=== PATIENT | male | born 1955 | race African-American/Black ===

== ENCOUNTER 2019-05-09 17:07 | Emergency (ER) | payer MEDICAID ==
[~2019-05-09] VITALS: Ht 180.3 cm; Wt 87.0 kg
[~2019-05-09 17:07] MED LIST: HYDR-3280 MT
[2019-05-09] MEDS ORDERED: HYDROCODONE/ACETAMINOPHEN 10/325MG TABLET PO ONE (19:15)
[2019-05-09 20:03] VITALS: BP 137/84
== END 2019-05-09 20:07 | disposition home or self-care (01) ==
LOC: ER 17:07
DX: G89.29 Other chronic pain (principal); M25.552 Pain in left hip; M19.90 Unspecified osteoarthritis, unspecified site; J44.9 Chronic obstructive pulmonary disease, unspecified
CPT/HCPCS: 99283

== ENCOUNTER 2019-07-20 14:35 | Emergency (ER) | payer SELFPAY ==
[~2019-07-20] VITALS: Ht 182.9 cm; Wt 98.0 kg
[2019-07-20 14:51] VITALS: BP 122/84
== END 2019-07-20 18:19 | disposition left against medical advice (07) ==
LOC: ER 14:35
DX: Z53.21 Procedure and treatment not carried out due to patient leaving prior to being seen by health care provider (principal); J44.9 Chronic obstructive pulmonary disease, unspecified; J45.909 Unspecified asthma, uncomplicated

== ENCOUNTER 2019-07-22 08:47 | Emergency (ER) | payer SELFPAY ==
[~2019-07-22] VITALS: Ht 170.2 cm; Wt 79.0 kg
[2019-07-22] MEDS ORDERED: OXYCODONE HCL/ACETAMINOPHEN 5/325MG TABLET PO ONE (12:15)
[2019-07-22] MEDS ORDERED: IBUPROFEN 400MG TABLET PO ONE (12:15)
[2019-07-22 13:45] VITALS: BP 134/89
== END 2019-07-22 13:55 | disposition home or self-care (01) ==
LOC: ER 08:47
DX: M25.552 Pain in left hip (principal); M25.551 Pain in right hip; J44.9 Chronic obstructive pulmonary disease, unspecified; Z96.649 Presence of unspecified artificial hip joint
CPT/HCPCS: 99283

== ENCOUNTER 2019-12-22 07:18 | Emergency (ER) | payer MEDICAID ==
[~2019-12-22] VITALS: Ht 180.3 cm; Wt 100.0 kg
[2019-12-22 07:27] VITALS: BP 131/79
[2019-12-22] MEDS ORDERED: HYDROCODONE/ACETAMINOPHEN 5/325MG TABLET PO ONE (08:00)
[2019-12-22] MEDS ORDERED: HYDROCODONE/ACETAMINOPHEN 5/325MG TABLET ONE (08:33)
== END 2019-12-22 08:50 | disposition home or self-care (01) ==
LOC: ER 07:18
DX: M54.9 Dorsalgia, unspecified (principal); G89.29 Other chronic pain; M54.30 Sciatica, unspecified side; J44.9 Chronic obstructive pulmonary disease, unspecified; J45.909 Unspecified asthma, uncomplicated
CPT/HCPCS: 99283

== ENCOUNTER 2020-05-03 07:17 | Emergency (ER) | payer MEDICAID ==
[~2020-05-03] VITALS: Ht 172.7 cm; Wt 82.0 kg
[2020-05-03 07:18] VITALS: BP 126/67
[2020-05-03] MEDS ORDERED: ALBU18HF2 IH (07:22)
== END 2020-05-03 08:08 | disposition left against medical advice (07) ==
LOC: ER 07:40
DX: R06.02 Shortness of breath (principal); Z53.21 Procedure and treatment not carried out due to patient leaving prior to being seen by health care provider
CPT/HCPCS: 93005

== ENCOUNTER 2020-07-15 03:30 | Inpatient (IN) | payer MEDICAID ==
[~2020-07-15] VITALS: Ht 180.3 cm; Wt 99.3 kg
[~2020-07-15 03:30] MED LIST changes: +ALBU18HF2 IH; -HYDR-3280 MT; +HYDR-4350 MT
[2020-07-15] MEDS ORDERED: ALBUTEROL (0.083%) 2.5MG/3ML NEB HHN STA ×2 (03:49→07:29)
[2020-07-15] MEDS ORDERED: METHYLPREDNISOLONE SOD SUCC 125 MG/2 ML VIAL IV STA (03:49)
[2020-07-15] MEDS ORDERED: IPRATROPIUM BROMIDE (0.02%) 0.5MG/2.5ML NEB HHN STA (03:49)
[2020-07-15 04:38] LABS: BASOPHILS % 0.3 % (0.0-2.0); EOSINOPHILS % 3.2 % (0.0-5.0); HEMATOCRIT. 43.2 % (42.0-52.0); HEMOGLOBIN. 14.4 g/dL (14.0-18.0); LYMPHOCYTES % 40.3 % (20.0-50.0); MEAN CORPUSCULAR HEMOGLOBIN 29.4 pg (28.0-32.0); MEAN CORPUSCULAR VOLUME 88.3 fL (80.0-94.0); MEAN PLATELET VOLUME 7.8 fl (7.4-10.4); MONOCYTES % 10.9 % (2.0-8.0); NEUTROPHILS % 45.3 % (40.0-76.0); PLATELET 204 x1000/uL (130-400); RED BLOOD CELL COUNT 4.89 mill/uL (4.7-6.1); RED CELL DISTRIBUTION WIDTH 13.8 % (11.6-14.6)
[2020-07-15 04:43] LABS: CHLORIDE 113 mEq/L (98-107)
[2020-07-15] MEDS ORDERED: ONDANSETRON HCL 4MG/2ML INJ IV PRN (11:00)
[2020-07-15] MEDS ORDERED: ACETAMINOPHEN 325MG TABLET PO PRN (11:00)
[2020-07-15] MEDS: METHYLPREDNISOLONE SOD SUCC 40 MG/ML VIAL IV SCH ×2 (11:13→19:07)
[2020-07-15] MEDS: ENOXAPARIN 40MG/0.4ML SYR SUBCUT SCH (12:35)
[2020-07-15] MEDS: IPRATROPIUM/ALBUTEROL 0.5-3(2.5)MG/3ML NEB HHN SCH ×3 (13:09→20:39)
[2020-07-15] MEDS: FAMOTIDINE 20MG TABLET PO SCH (21:48)
[2020-07-16] MEDS: METHYLPREDNISOLONE SOD SUCC 40 MG/ML VIAL IV SCH ×3 (04:09→19:58)
[2020-07-16] MEDS: IPRATROPIUM/ALBUTEROL 0.5-3(2.5)MG/3ML NEB HHN SCH ×3 (08:32→21:14)
[2020-07-16 10:45] VITALS: BP 124/78
[2020-07-16] MEDS: FAMOTIDINE 20MG TABLET PO SCH ×2 (12:03→21:49)
[2020-07-16] MEDS: ENOXAPARIN 40MG/0.4ML SYR SUBCUT SCH (12:03)
[2020-07-16] MEDS ORDERED: HYDROCODONE/ACETAMINOPHEN 5/325MG TABLET PO NR (14:00)
[2020-07-16 18:00] VITALS: BP 127/77
[2020-07-16 20:00] VITALS: BP 125/72
[2020-07-17] VITALS: BP 146/80
[2020-07-17] MEDS: HYDROCODONE/ACETAMINOPHEN 5/325MG TABLET PO PRN (00:38)
[2020-07-17] MEDS: IPRATROPIUM/ALBUTEROL 0.5-3(2.5)MG/3ML NEB HHN SCH ×5 (03:08→21:12)
[2020-07-17] MEDS: METHYLPREDNISOLONE SOD SUCC 40 MG/ML VIAL IV SCH ×3 (04:35→18:02)
[2020-07-17 04:40] VITALS: BP 124/82
[2020-07-17 08:00] VITALS: BP 129/70
[2020-07-17] MEDS: FAMOTIDINE 20MG TABLET PO SCH ×2 (08:33→20:36)
[2020-07-17] MEDS: ENOXAPARIN 40MG/0.4ML SYR SUBCUT SCH (11:16)
[2020-07-17 12:00] VITALS: BP 130/79
[2020-07-17] MEDS: TAMSULOSIN HCL 0.4MG SR CAPSULE PO SCH (14:04)
[2020-07-17 16:00] VITALS: BP 138/76
[2020-07-17 20:00] VITALS: BP 125/75
[2020-07-18] VITALS: BP 135/75
[2020-07-18] MEDS: IPRATROPIUM/ALBUTEROL 0.5-3(2.5)MG/3ML NEB HHN SCH ×6 (00:41→22:19)
[2020-07-18] MEDS: METHYLPREDNISOLONE SOD SUCC 40 MG/ML VIAL IV SCH ×3 (03:49→19:01)
[2020-07-18 04:00] VITALS: BP 124/80
[2020-07-18] MEDS: HYDROCODONE/ACETAMINOPHEN 5/325MG TABLET PO PRN ×2 (05:35→21:17)
[2020-07-18 08:00] VITALS: BP 147/98
[2020-07-18] MEDS: FAMOTIDINE 20MG TABLET PO SCH ×2 (09:11→21:14)
[2020-07-18] MEDS: TAMSULOSIN HCL 0.4MG SR CAPSULE PO SCH (09:12)
[2020-07-18] MEDS ORDERED: BENZONATATE 100MG CAPSULE PO PRN (11:15)
[2020-07-18] MEDS: ENOXAPARIN 40MG/0.4ML SYR SUBCUT SCH (11:41)
[2020-07-18 12:00] VITALS: BP 115/71
[2020-07-18 16:00] VITALS: BP 121/69
[2020-07-18] MEDS ORDERED: ALBU18HF2 IH (17:54)
[2020-07-18] MEDS ORDERED: FLUT1DIS3 INH (17:54)
[2020-07-18] MEDS ORDERED: P20 MT (17:54)
[2020-07-18] MEDS ORDERED: IPRA3AMP9 NEB (17:54)
[2020-07-18 20:00] VITALS: BP 136/78
[2020-07-19] VITALS: BP 101/75
[2020-07-19] MEDS: METHYLPREDNISOLONE SOD SUCC 40 MG/ML VIAL IV SCH (03:34)
[2020-07-19 04:00] VITALS: BP 133/82
[2020-07-19] MEDS: IPRATROPIUM/ALBUTEROL 0.5-3(2.5)MG/3ML NEB HHN SCH (04:06)
[2020-07-19 08:00] VITALS: BP 110/78
[2020-07-19 08:02] VITALS: BP 133/82
== END 2020-07-19 09:15 | disposition home or self-care (01) | DRG 140 ==
LOC: ER 03:54 → 8WST 07-16 08:43 → ENRESERV 07-16 09:45
PROVIDERS: ADMIT Internal Medicine Nephrology; ATTEND Internal Medicine Nephrology
DX: J44.1 Chronic obstructive pulmonary disease with (acute) exacerbation (principal); J96.00 Acute respiratory failure, unspecified whether with hypoxia or hypercapnia; F17.210 Nicotine dependence, cigarettes, uncomplicated; F14.10 Cocaine abuse, uncomplicated; R65.11 Systemic inflammatory response syndrome (SIRS) of non-infectious origin with acute organ dysfunction; E87.8 Other disorders of electrolyte and fluid balance, not elsewhere classified; Z79.891 Long term (current) use of opiate analgesic; Z79.899 Other long term (current) drug therapy; Z71.6 Tobacco abuse counseling
CPT/HCPCS: 36415; 71045; 80053; 83880; 84484; 85025; 93005; 94640; 96374; 99285; J1650; J2920; J2930

== ENCOUNTER 2020-08-16 02:54 | Inpatient (IN) | payer MEDICAID ==
[~2020-08-16] VITALS: Ht 195.6 cm; Wt 78.0 kg
[~2020-08-16 02:54] MED LIST changes: +FLUT1DIS3 INH; +IPRA3AMP9 NEB; +P20 MT
[2020-08-16] MEDS ORDERED: MAGNESIUM 2 G PREMIX 50 ML IV STA (03:11)
[2020-08-16] MEDS ORDERED: IPRATROPIUM BROMIDE (0.02%) 0.5MG/2.5ML NEB HHN STA (03:11)
[2020-08-16] MEDS ORDERED: METHYLPREDNISOLONE SOD SUCC 125 MG/2 ML VIAL IV STA (03:11)
[2020-08-16] MEDS ORDERED: ALBUTEROL (0.083%) 2.5MG/3ML NEB HHN STA (03:11)
[2020-08-16 04:59] LABS: HEMATOCRIT 42.7 % (42.0-52.0); HEMOGLOBIN 14.5 g/dL (14.0-18.0); MEAN CORPUSCULAR HEMOGLOBIN 29.9 pg (28.0-32.0); MEAN CORPUSCULAR VOLUME 88.3 fL (80.0-94.0); PLATELET 256 x1000/uL (130-400); RED BLOOD CELL COUNT 4.83 mill/uL (4.7-6.1); RED CELL DISTRIBUTION WIDTH 14.6 % (11.6-14.6)
[2020-08-16 05:05] LABS: CHLORIDE 111 mEq/L (98-107)
[2020-08-16] MEDS ORDERED: ACETAMINOPHEN 325MG TABLET PO PRN ×3 (09:30→18:45)
[2020-08-16] MEDS ORDERED: IPRATROPIUM/ALBUTEROL 0.5-3(2.5)MG/3ML NEB HHN PRN (12:00)
[2020-08-16] MEDS: SIMETHICONE 80MG TABLET CHEW PO PRN (13:42)
[2020-08-16] MEDS: METHYLPREDNISOLONE SOD SUCC 125 MG/2 ML VIAL IV SCH ×2 (13:43→18:00)
[2020-08-16] MEDS: IPRATROPIUM/ALBUTEROL 0.5-3(2.5)MG/3ML NEB HHN SCH ×2 (14:48→20:05)
[2020-08-16 16:00] VITALS: BP 125/72
[2020-08-16] MEDS ORDERED: DIPHENHYDRAMINE 50MG/ML VIAL IV PRN (18:45)
[2020-08-16] MEDS ORDERED: ONDANSETRON HCL 4MG/2ML INJ IV PRN (18:45)
[2020-08-16] MEDS ORDERED: KETOROLAC 30MG/ML VIAL IV PRN (18:45)
[2020-08-16] MEDS ORDERED: CLONIDINE 0.1MG TABLET PO PRN (18:45)
[2020-08-16 20:00] VITALS: BP 145/77
[2020-08-16] MEDS ORDERED: PNEUMOCOCCAL 23-VAL P-SAC VAC 0.5 ML IM ONE (20:00)
[2020-08-16] MEDS ORDERED: FAMOTIDINE 20MG TABLET PO SCH (21:00)
[2020-08-16] MEDS: FAMOTIDINE 20MG TABLET PO SCH (22:19)
[2020-08-16] MEDS: GUAIFENESIN 600MG ER TABLET PO SCH (22:19)
[2020-08-16] MEDS: ENOXAPARIN 40MG/0.4ML SYR SUBCUT SCH (22:20)
[2020-08-16] MEDS: HYDROCODONE/APAP 7.5/325MG 1 TAB TABLET PO PRN (22:38)
[2020-08-16] MEDS: SODIUM CHLORIDE 0.9% INJ 3ML FLUSH IVF SCH (22:54)
[2020-08-17] VITALS: BP 121/66
[2020-08-17] MEDS: METHYLPREDNISOLONE SOD SUCC 125 MG/2 ML VIAL IV SCH ×5 (01:48→23:06)
[2020-08-17] MEDS: ZOLPIDEM TARTRATE 5MG TABLET PO PRN (01:52)
[2020-08-17] MEDS: IPRATROPIUM/ALBUTEROL 0.5-3(2.5)MG/3ML NEB HHN SCH ×4 (02:00→21:37)
[2020-08-17 04:00] VITALS: BP 116/77
[2020-08-17] MEDS: SODIUM CHLORIDE 0.9% INJ 3ML FLUSH IVF SCH ×3 (06:00→20:43)
[2020-08-17 08:00] VITALS: BP 122/75
[2020-08-17] MEDS: IPRATROPIUM/ALBUTEROL 0.5-3(2.5)MG/3ML NEB HHN PRN (10:13)
[2020-08-17] MEDS: GUAIFENESIN 600MG ER TABLET PO SCH ×2 (10:54→20:42)
[2020-08-17] MEDS: FAMOTIDINE 20MG TABLET PO SCH ×2 (10:54→20:42)
[2020-08-17 12:00] VITALS: BP 118/71
[2020-08-17 16:00] VITALS: BP 125/71
[2020-08-17] MEDS ORDERED: TERBUTALINE SULFATE 1MG/ML VIAL SUBCUT NR (16:00)
[2020-08-17 20:00] VITALS: BP 124/69
[2020-08-17] MEDS: ENOXAPARIN 40MG/0.4ML SYR SUBCUT SCH (20:42)
[2020-08-17] MEDS: HYDROCODONE/APAP 7.5/325MG 1 TAB TABLET PO PRN (23:07)
[2020-08-18] VITALS: BP 131/79
[2020-08-18] MEDS: IPRATROPIUM/ALBUTEROL 0.5-3(2.5)MG/3ML NEB HHN SCH ×4 (01:37→21:24)
[2020-08-18 04:00] VITALS: BP 143/74
[2020-08-18] MEDS: SODIUM CHLORIDE 0.9% INJ 3ML FLUSH IVF SCH ×3 (05:08→21:35)
[2020-08-18] MEDS: METHYLPREDNISOLONE SOD SUCC 125 MG/2 ML VIAL IV SCH ×3 (05:08→17:19)
[2020-08-18] MEDS: SIMETHICONE 80MG TABLET CHEW PO PRN (05:13)
[2020-08-18 08:00] VITALS: BP 134/76
[2020-08-18] MEDS: FAMOTIDINE 20MG TABLET PO SCH (08:37)
[2020-08-18] MEDS: GUAIFENESIN 600MG ER TABLET PO SCH ×2 (08:37→21:29)
[2020-08-18 12:00] VITALS: BP 126/98
[2020-08-18] MEDS: MAGNESIUM/ALUMINUM HYDROXIDE/SIMETHICONE 30ML UDC PO PRN (13:00)
[2020-08-18 16:00] VITALS: BP 127/85
[2020-08-18] MEDS ORDERED: POLYVINYL ALCOHOL OPHTH DROPS 15ML BOTHEYE PRN (19:15)
[2020-08-18 20:00] VITALS: BP 117/65
[2020-08-18] MEDS: PANTOPRAZOLE 40MG DR TABLET PO SCH (21:29)
[2020-08-18] MEDS: ZOLPIDEM TARTRATE 5MG TABLET PO PRN (21:29)
[2020-08-18] MEDS: ENOXAPARIN 40MG/0.4ML SYR SUBCUT SCH (21:29)
[2020-08-19] VITALS: BP 129/82
[2020-08-19] MEDS: METHYLPREDNISOLONE SOD SUCC 125 MG/2 ML VIAL IV SCH ×3 (01:00→11:58)
[2020-08-19] MEDS: IPRATROPIUM/ALBUTEROL 0.5-3(2.5)MG/3ML NEB HHN SCH ×5 (02:20→23:34)
[2020-08-19 04:00] VITALS: BP 132/85
[2020-08-19] MEDS: SODIUM CHLORIDE 0.9% INJ 3ML FLUSH IVF SCH ×3 (05:47→20:42)
[2020-08-19 08:27] VITALS: BP 130/83
[2020-08-19] MEDS: GUAIFENESIN 600MG ER TABLET PO SCH ×2 (08:40→20:41)
[2020-08-19] MEDS: PANTOPRAZOLE 40MG DR TABLET PO SCH ×2 (08:40→20:41)
[2020-08-19 11:52] VITALS: BP 127/83
[2020-08-19] MEDS: HYDROCODONE/APAP 7.5/325MG 1 TAB TABLET PO PRN (11:59)
[2020-08-19] MEDS: SIMETHICONE 80MG TABLET CHEW PO PRN (11:59)
[2020-08-19 15:53] VITALS: BP 148/84
[2020-08-19 20:00] VITALS: BP 122/62
[2020-08-19] MEDS: ENOXAPARIN 40MG/0.4ML SYR SUBCUT SCH (20:40)
[2020-08-19] MEDS: METHYLPREDNISOLONE SOD SUCC 40 MG/ML VIAL IV SCH (20:42)
[2020-08-19] MEDS: ZOLPIDEM TARTRATE 5MG TABLET PO PRN (22:23)
[2020-08-20] VITALS: BP 143/86
[2020-08-20 04:00] VITALS: BP 126/78
[2020-08-20] MEDS: IPRATROPIUM/ALBUTEROL 0.5-3(2.5)MG/3ML NEB HHN PRN (04:45)
[2020-08-20] MEDS: METHYLPREDNISOLONE SOD SUCC 40 MG/ML VIAL IV SCH ×3 (05:18→21:32)
[2020-08-20] MEDS: SODIUM CHLORIDE 0.9% INJ 3ML FLUSH IVF SCH ×3 (05:19→21:33)
[2020-08-20] MEDS: PANTOPRAZOLE 40MG DR TABLET PO SCH ×2 (05:20→21:32)
[2020-08-20 06:09] LABS: CHLORIDE 107 mEq/L (98-107)
[2020-08-20 08:00] VITALS: BP 149/86
[2020-08-20] MEDS: GUAIFENESIN 600MG ER TABLET PO SCH ×2 (08:18→21:32)
[2020-08-20] MEDS: HYDROCODONE/APAP 7.5/325MG 1 TAB TABLET PO PRN (08:19)
[2020-08-20] MEDS: SIMETHICONE 80MG TABLET CHEW PO PRN (09:48)
[2020-08-20] MEDS: IPRATROPIUM/ALBUTEROL 0.5-3(2.5)MG/3ML NEB HHN SCH ×3 (09:52→20:00)
[2020-08-20 12:00] VITALS: BP 136/92
[2020-08-20] MEDS: TAMSULOSIN HCL 0.4MG SR CAPSULE PO SCH (15:56)
[2020-08-20 16:00] VITALS: BP 138/88
[2020-08-20] MEDS: THEOPHYLLINE ANHYDROUS 80 MG/15 ML 120ML PO SCH (18:00)
[2020-08-20 20:00] VITALS: BP 123/73
[2020-08-20] MEDS: ENOXAPARIN 40MG/0.4ML SYR SUBCUT SCH (21:33)
[2020-08-21] VITALS: BP 118/76
[2020-08-21] MEDS: SIMETHICONE 80MG TABLET CHEW PO PRN ×2 (00:21→20:03)
[2020-08-21] MEDS: THEOPHYLLINE ANHYDROUS 80 MG/15 ML 120ML PO SCH ×4 (00:21→17:36)
[2020-08-21] MEDS: IPRATROPIUM/ALBUTEROL 0.5-3(2.5)MG/3ML NEB HHN SCH ×4 (01:12→22:33)
[2020-08-21 04:00] VITALS: BP 121/79
[2020-08-21] MEDS: HYDROCODONE/APAP 7.5/325MG 1 TAB TABLET PO PRN (04:59)
[2020-08-21] MEDS: METHYLPREDNISOLONE SOD SUCC 40 MG/ML VIAL IV SCH ×2 (05:00→13:23)
[2020-08-21] MEDS: SODIUM CHLORIDE 0.9% INJ 3ML FLUSH IVF SCH ×3 (05:01→22:00)
[2020-08-21] MEDS: MAGNESIUM/ALUMINUM HYDROXIDE/SIMETHICONE 30ML UDC PO PRN (05:09)
[2020-08-21] MEDS: PANTOPRAZOLE 40MG DR TABLET PO SCH ×2 (06:41→20:13)
[2020-08-21 08:00] VITALS: BP 139/85
[2020-08-21] MEDS: TAMSULOSIN HCL 0.4MG SR CAPSULE PO SCH (09:28)
[2020-08-21] MEDS: GUAIFENESIN 600MG ER TABLET PO SCH ×2 (09:28→20:12)
[2020-08-21 12:00] VITALS: BP 117/89
[2020-08-21] MEDS ORDERED: TERBUTALINE SULFATE 1MG/ML VIAL SUBCUT NR (14:30)
[2020-08-21 16:55] VITALS: BP 113/73
[2020-08-21 20:00] VITALS: BP 134/82
[2020-08-21] MEDS: PREDNISONE 20MG TABLET PO SCH (20:02)
[2020-08-21] MEDS: ENOXAPARIN 40MG/0.4ML SYR SUBCUT SCH (20:13)
[2020-08-21] MEDS: BUDESONIDE 0.5MG/2ML NEB HHN SCH (22:33)
[2020-08-22] VITALS: BP 132/87
[2020-08-22] MEDS: THEOPHYLLINE ANHYDROUS 80 MG/15 ML 120ML PO SCH ×3 (00:17→12:49)
[2020-08-22] MEDS: MAGNESIUM/ALUMINUM HYDROXIDE/SIMETHICONE 30ML UDC PO PRN ×2 (00:18→08:23)
[2020-08-22] MEDS: IPRATROPIUM/ALBUTEROL 0.5-3(2.5)MG/3ML NEB HHN SCH ×3 (02:15→15:41)
[2020-08-22] MEDS: PANTOPRAZOLE 40MG DR TABLET PO SCH (05:39)
[2020-08-22] MEDS: SODIUM CHLORIDE 0.9% INJ 3ML FLUSH IVF SCH ×2 (06:00→14:00)
[2020-08-22 06:35] LABS: HEMATOCRIT. 42.7 % (42.0-52.0); HEMOGLOBIN. 14.1 g/dL (14.0-18.0); MEAN CORPUSCULAR HEMOGLOBIN 29.4 pg (28.0-32.0); MEAN CORPUSCULAR VOLUME 88.8 fL (80.0-94.0); MEAN PLATELET VOLUME 7.4 fl (7.4-10.4); PLATELET 238 x1000/uL (130-400); RED CELL DISTRIBUTION WIDTH 14.9 % (11.6-14.6)
[2020-08-22 07:26] LABS: CHLORIDE 103 mEq/L (98-107)
[2020-08-22 08:02] LABS: NUCLEATED RED BLOOD CELLS 1 /100 WBC; PLATELET ESTIMATE NORMAL
[2020-08-22] MEDS: PREDNISONE 20MG TABLET PO SCH (08:28)
[2020-08-22] MEDS: GUAIFENESIN 600MG ER TABLET PO SCH (08:28)
[2020-08-22] MEDS: TAMSULOSIN HCL 0.4MG SR CAPSULE PO SCH (08:29)
[2020-08-22] MEDS: BUDESONIDE 0.5MG/2ML NEB HHN SCH (08:56)
[2020-08-22 15:17] VITALS: BP 122/87
== END 2020-08-22 17:05 | disposition home or self-care (01) | DRG 140 ==
LOC: ER 02:54 → 8WST 05:16 → ENRESERV 07:29
PROVIDERS: ADMIT Internal Medicine; ATTEND Internal Medicine
DX: J44.1 Chronic obstructive pulmonary disease with (acute) exacerbation (principal); J96.21 Acute and chronic respiratory failure with hypoxia; F14.10 Cocaine abuse, uncomplicated; K21.9 Gastro-esophageal reflux disease without esophagitis; M19.90 Unspecified osteoarthritis, unspecified site; F17.210 Nicotine dependence, cigarettes, uncomplicated; N40.0 Benign prostatic hyperplasia without lower urinary tract symptoms; T40.5X5A Adverse effect of cocaine, initial encounter; Y92.89 Other specified places as the place of occurrence of the external cause; Z71.6 Tobacco abuse counseling; E87.8 Other disorders of electrolyte and fluid balance, not elsewhere classified; E44.1 Mild protein-calorie malnutrition; Z68.20 Body mass index [BMI] 20.0-20.9, adult; R65.11 Systemic inflammatory response syndrome (SIRS) of non-infectious origin with acute organ dysfunction
CPT/HCPCS: 36415; 71045; 80048; 80053; 83880; 85025; 85027; 90732; 93005; 94640; 99291; C1893; J1650; J2920; J2930; J3105; J3475; J7512; J7626

== ENCOUNTER 2021-02-05 02:23 | Inpatient (IN) | payer MEDICAID ==
[~2021-02-05] VITALS: Ht 180.3 cm; Wt 93.6 kg
[2021-02-05] MEDS ORDERED: ALBUTEROL (0.083%) 2.5MG/3ML NEB HHN STA (02:33)
[2021-02-05] MEDS ORDERED: METHYLPREDNISOLONE SOD SUCC 125 MG/2 ML VIAL IV STA (02:33)
[2021-02-05 02:48] LABS: BASOPHILS % 0.7 % (0.0-2.0); EOSINOPHILS % 2.6 % (0.0-5.0); HEMATOCRIT. 41.9 % (42.0-52.0); HEMOGLOBIN. 14.3 g/dL (14.0-18.0); MEAN CORPUSCULAR HEMOGLOBIN 29.7 pg (28.0-32.0); MEAN CORPUSCULAR VOLUME 87.4 fL (80.0-94.0); MEAN PLATELET VOLUME 7.4 fl (7.4-10.4); MONOCYTES % 10.5 % (2.0-8.0); NEUTROPHILS % 52.2 % (40.0-76.0); PLATELET 223 x1000/uL (130-400); RED CELL DISTRIBUTION WIDTH 13.7 % (11.6-14.6)
[2021-02-05 02:56] LABS: CHLORIDE 109 mEq/L (98-107)
[2021-02-05 09:35] VITALS: BP 106/82
[2021-02-05] MEDS ORDERED: DOCUSATE SODIUM 100MG CAPSULE PO PRN (09:45)
[2021-02-05] MEDS ORDERED: MAGNESIUM/ALUMINUM HYDROXIDE/SIMETHICONE 30ML UDC PO PRN (09:45)
[2021-02-05] MEDS ORDERED: NITROGLYCERIN 0.4MG TABLET SL SL PRN (09:45)
[2021-02-05] MEDS ORDERED: IPRATROPIUM/ALBUTEROL 0.5-3(2.5)MG/3ML NEB NEB PRN (09:45)
[2021-02-05] MEDS ORDERED: ACETAMINOPHEN 325MG TABLET PO PRN ×2 (09:45)
[2021-02-05] MEDS ORDERED: GUAIFENESIN 200MG/10ML SUGAR FREE UDC PO PRN (09:45)
[2021-02-05] MEDS ORDERED: ONDANSETRON HCL 4MG/2ML INJ IV PRN (09:45)
[2021-02-05] MEDS ORDERED: CLONIDINE 0.1MG TABLET PO PRN (09:45)
[2021-02-05] MEDS ORDERED: KETOROLAC 15MG/ML VIAL IV PRN (09:45)
[2021-02-05 12:00] VITALS: BP 126/90
[2021-02-05] MEDS: ENOXAPARIN 40MG/0.4ML SYR SUBCUT SCH (12:25)
[2021-02-05] MEDS: FAMOTIDINE 20MG TABLET PO SCH ×2 (12:25→20:07)
[2021-02-05] MEDS: LEVOFLOXACIN 500MG PREMIX 100 ML IV SCH (12:26)
[2021-02-05] MEDS: GUAIFENESIN/DM 600MG/30MG ER TAB 12HR PO SCH ×2 (12:26→20:07)
[2021-02-05] MEDS: ASPIRIN 325MG EC TABLET PO SCH (12:26)
[2021-02-05] MEDS: METHYLPREDNISOLONE SOD SUCC 125 MG/2 ML VIAL IV SCH ×2 (13:09→21:37)
[2021-02-05] MEDS: IPRATROPIUM/ALBUTEROL 0.5-3(2.5)MG/3ML NEB HHN SCH ×2 (14:46→19:46)
[2021-02-05 16:00] VITALS: BP 152/83
[2021-02-05 18:50] LABS: CREATINE KINASE 83 IU/L (39-308)
[2021-02-05 18:51] LABS: CREATINE KINASE MB FRACTION < 1.0 ng/mL (0.5-3.6)
[2021-02-05 20:00] VITALS: BP 122/79
[2021-02-05 20:04] LABS: FOLIC ACID (FOLATE) SERUM >20 ng/mL ng/mL (>5.38)
[2021-02-05 20:16] LABS: VITAMIN B12 SERUM 393 pg/mL (211-911)
[2021-02-06] VITALS: BP 126/77
[2021-02-06] MEDS: IPRATROPIUM/ALBUTEROL 0.5-3(2.5)MG/3ML NEB HHN SCH ×5 (00:02→20:35)
[2021-02-06 00:26] LABS: CREATINE KINASE 73 IU/L (39-308)
[2021-02-06 00:27] LABS: CREATINE KINASE MB FRACTION 1.6 ng/mL (0.5-3.6)
[2021-02-06 04:00] VITALS: BP 119/77
[2021-02-06 05:39] LABS: *BARBITURATES SCREEN URINE NEGATIVE (NEGATIVE); *BENZODIAZEPINES SCREEN URINE NEGATIVE (NEGATIVE); *COCAINE SCREEN URINE PRESUMTIVE POSITIVE (NEGATIVE); METHADONE URINE SCREEN NEGATIVE (NEGATIVE); OPIATES URINE SCREEN PRESUMTIVE POSITIVE (NEGATIVE)
[2021-02-06 05:40] LABS: *AMPHETAMINES SCREEN URINE NEGATIVE (NEGATIVE); CANNABINOID URINE SCREEN NEGATIVE (NEGATIVE); PHENCYCLIDINE URINE SCREEN NEGATIVE (NEGATIVE)
[2021-02-06] MEDS: METHYLPREDNISOLONE SOD SUCC 125 MG/2 ML VIAL IV SCH ×3 (06:02→21:02)
[2021-02-06 07:46] LABS: BASOPHILS % 0.1 % (0.0-2.0); HEMATOCRIT. 39.2 % (42.0-52.0); LYMPHOCYTES % 9.4 % (20.0-50.0); MEAN CORPUSCULAR HEMOGLOBIN 28.9 pg (28.0-32.0); MEAN CORPUSCULAR VOLUME 87.1 fL (80.0-94.0); MEAN PLATELET VOLUME 7.7 fl (7.4-10.4); MONOCYTES % 3.9 % (2.0-8.0); NEUTROPHILS % 86.6 % (40.0-76.0); PLATELET 238 x1000/uL (130-400); RED CELL DISTRIBUTION WIDTH 13.6 % (11.6-14.6)
[2021-02-06 07:51] LABS: CHLORIDE 111 mEq/L (98-107)
[2021-02-06 08:00] VITALS: BP 135/78
[2021-02-06 08:04] LABS: PHOSPHORUS 1.9 mg/dL (2.5-4.9)
[2021-02-06] MEDS: ENOXAPARIN 40MG/0.4ML SYR SUBCUT SCH (08:59)
[2021-02-06] MEDS: FAMOTIDINE 20MG TABLET PO SCH ×2 (08:59→21:02)
[2021-02-06] MEDS: GUAIFENESIN/DM 600MG/30MG ER TAB 12HR PO SCH ×2 (08:59→21:02)
[2021-02-06] MEDS: ASPIRIN 325MG EC TABLET PO SCH (08:59)
[2021-02-06] MEDS: LEVOFLOXACIN 500MG PREMIX 100 ML IV SCH (11:30)
[2021-02-06 12:00] VITALS: BP 142/88
[2021-02-06 16:00] VITALS: BP 126/85
[2021-02-06 20:00] VITALS: BP 149/94
[2021-02-07] VITALS: BP 141/88
[2021-02-07] MEDS: IPRATROPIUM/ALBUTEROL 0.5-3(2.5)MG/3ML NEB HHN SCH ×5 (02:22→21:54)
[2021-02-07 04:00] VITALS: BP 112/61
[2021-02-07] MEDS: METHYLPREDNISOLONE SOD SUCC 125 MG/2 ML VIAL IV SCH ×3 (05:07→21:16)
[2021-02-07 08:00] VITALS: BP 140/80
[2021-02-07] MEDS: FAMOTIDINE 20MG TABLET PO SCH ×2 (09:37→20:27)
[2021-02-07] MEDS: GUAIFENESIN/DM 600MG/30MG ER TAB 12HR PO SCH ×2 (09:37→20:27)
[2021-02-07] MEDS: ASPIRIN 325MG EC TABLET PO SCH (09:37)
[2021-02-07] MEDS: ENOXAPARIN 40MG/0.4ML SYR SUBCUT SCH (09:38)
[2021-02-07 12:00] VITALS: BP 149/96
[2021-02-07] MEDS: LEVOFLOXACIN 500MG PREMIX 100 ML IV SCH (14:48)
[2021-02-07 16:00] VITALS: BP 130/76
[2021-02-07 20:00] VITALS: BP 120/71
[2021-02-07] MEDS: TAMSULOSIN HCL 0.4MG SR CAPSULE PO SCH (20:27)
[2021-02-08] VITALS (7 sets, daily range): BP systolic 102–141; BP diastolic 77–93
[2021-02-08] MEDS: IPRATROPIUM/ALBUTEROL 0.5-3(2.5)MG/3ML NEB HHN SCH ×6 (02:00→21:49)
[2021-02-08] MEDS: METHYLPREDNISOLONE SOD SUCC 125 MG/2 ML VIAL IV SCH ×3 (06:07→21:07)
[2021-02-08 07:42] LABS: CHLORIDE 109 mEq/L (98-107)
[2021-02-08 07:50] LABS: PHOSPHORUS 3.1 mg/dL (2.5-4.9)
[2021-02-08] MEDS: FAMOTIDINE 20MG TABLET PO SCH ×2 (09:47→21:08)
[2021-02-08] MEDS: GUAIFENESIN/DM 600MG/30MG ER TAB 12HR PO SCH ×2 (09:47→21:08)
[2021-02-08] MEDS: ASPIRIN 325MG EC TABLET PO SCH (09:47)
[2021-02-08] MEDS: ENOXAPARIN 40MG/0.4ML SYR SUBCUT SCH (09:47)
[2021-02-08] MEDS: LEVOFLOXACIN 500MG PREMIX 100 ML IV SCH (13:08)
[2021-02-08] MEDS: TAMSULOSIN HCL 0.4MG SR CAPSULE PO SCH (21:07)
[2021-02-08] MEDS: LACTULOSE 20G/30ML UDC PO SCH (21:07)
[2021-02-08] MEDS: ZOLPIDEM TARTRATE 5MG TABLET PO PRN (21:16)
[2021-02-09] MEDS: IPRATROPIUM/ALBUTEROL 0.5-3(2.5)MG/3ML NEB HHN SCH ×6 (00:30→21:28)
[2021-02-09 04:00] VITALS: BP 154/93
[2021-02-09] MEDS: LACTULOSE 20G/30ML UDC PO SCH ×3 (05:12→22:00)
[2021-02-09] MEDS: METHYLPREDNISOLONE SOD SUCC 125 MG/2 ML VIAL IV SCH ×3 (05:12→23:28)
[2021-02-09 08:00] VITALS: BP 118/80
[2021-02-09] MEDS: GUAIFENESIN/DM 600MG/30MG ER TAB 12HR PO SCH ×2 (09:27→20:28)
[2021-02-09] MEDS: ASPIRIN 325MG EC TABLET PO SCH (09:27)
[2021-02-09] MEDS: ENOXAPARIN 40MG/0.4ML SYR SUBCUT SCH (09:27)
[2021-02-09] MEDS: FAMOTIDINE 20MG TABLET PO SCH ×2 (09:27→20:28)
[2021-02-09 12:00] VITALS: BP 156/78
[2021-02-09] MEDS: LEVOFLOXACIN 500MG PREMIX 100 ML IV SCH (13:28)
[2021-02-09 16:00] VITALS: BP 113/80
[2021-02-09 20:00] VITALS: BP 122/83
[2021-02-09] MEDS: TAMSULOSIN HCL 0.4MG SR CAPSULE PO SCH (20:28)
[2021-02-10] VITALS: BP 116/73
[2021-02-10] MEDS: ZOLPIDEM TARTRATE 5MG TABLET PO PRN (00:59)
[2021-02-10] MEDS: IPRATROPIUM/ALBUTEROL 0.5-3(2.5)MG/3ML NEB HHN SCH ×4 (01:11→12:23)
[2021-02-10 04:00] VITALS: BP 136/80
[2021-02-10] MEDS: METHYLPREDNISOLONE SOD SUCC 125 MG/2 ML VIAL IV SCH (06:54)
[2021-02-10] MEDS: LACTULOSE 20G/30ML UDC PO SCH (06:54)
[2021-02-10 08:00] VITALS: BP 136/82
[2021-02-10] MEDS: FAMOTIDINE 20MG TABLET PO SCH (08:39)
[2021-02-10] MEDS: ASPIRIN 325MG EC TABLET PO SCH (08:39)
[2021-02-10] MEDS: GUAIFENESIN/DM 600MG/30MG ER TAB 12HR PO SCH (08:39)
[2021-02-10] MEDS: ENOXAPARIN 40MG/0.4ML SYR SUBCUT SCH (08:40)
[2021-02-10 11:55] VITALS: BP 136/81
== END 2021-02-10 14:19 | disposition home or self-care (01) | DRG 140 ==
LOC: ER 02:23 → 8WST 04:21 → EDBEDREQ 04:30 → EDBEDREQTM 04:30 → ENRESERV 07:37
PROVIDERS: ADMIT Internal Medicine; ATTEND Internal Medicine
DX: J44.1 Chronic obstructive pulmonary disease with (acute) exacerbation (principal); J96.00 Acute respiratory failure, unspecified whether with hypoxia or hypercapnia; F17.210 Nicotine dependence, cigarettes, uncomplicated; R79.89 Other specified abnormal findings of blood chemistry; F14.10 Cocaine abuse, uncomplicated; Z79.899 Other long term (current) drug therapy; Z91.011 Allergy to milk products
CPT/HCPCS: 36415; 71045; 80048; 80053; 80061; 80305; 82550; 82553; 82607; 82746; 83036; 83540; 83550; 83735; 83880; 84100; 84484; 85025; 93005; 93970; 94640; 99285; C1893; J1650; J1956; J2930; J7040